=== PATIENT | male | born 1970 | race Caucasian/White ===

== ENCOUNTER → 2019-12-30 12:50 | Outpatient (BNVA) | payer BC, SELFPAY | PROVIDERS: Family Provider Family Medicine; Referring Provider Dermatology; Visit Provider Dermatology | DX: D48.5 Neoplasm of uncertain behavior of skin (principal); D48.9 Neoplasm of uncertain behavior, unspecified; D22.9 Melanocytic nevi, unspecified; L21.9 Seborrheic dermatitis, unspecified | CPT/HCPCS: 11102; 11103; 88304; 88305; 99203; 99204 ==

== ENCOUNTER → 2020-09-02 13:16 | Outpatient (BNVA) | payer BC, SELFPAY | PROVIDERS: PCP Family Medicine; Referring Provider Dermatology; Visit Provider Podiatrist Foot & Ankle Surgery | DX: M79.671 Pain in right foot (principal) | CPT/HCPCS: 73630 ==